=== PATIENT | female | born 1965 | race American Indian/Alaskan Native ===

== ENCOUNTER 2018-05-10 20:53 | Emergency (ER) | payer BC, MEDICAID, OTHER ==
[2018-05-10] MEDS ORDERED: Albuterol 6.7 GM Inhaler INH ONE (20:54)
[2018-05-10] MEDS ORDERED: Benzonatate 100 MG Cap PO ONE (20:54)
[2018-05-10] MEDS ORDERED: Albuterol 0.083% 2.5 MG/3 ML Neb Soln NEB ONE (23:16)
[2018-05-10] MEDS ORDERED: Sodium Chloride 0.9% 1,000 ML IV SCH (23:45)
[2018-05-10] MEDS ORDERED: Morphine 2 MG/ML Syringe IVPUSH ONE (23:48)
[2018-05-11 00:12] LABS: ANION GAP 17.8; CHLORIDE,CL 103 mmol/L (101-111); SODIUM,NA 136 mmol/L (135-145)
[2018-05-11] MEDS ORDERED: Oseltamivir 75 MG Cap PO ONE (00:35)
--- NOTE | 2018-05-11 00:47 | EDM.PDOC ---
ED HPI GENERAL MEDICAL PROBLEM - General Chief Complaint: Respiratory Problem Stated Complaint: HARD TIME BREATHING Time Seen by Provider: 05/10/18 23:20 Source of Information: Reports: Patient - History of Present Illness INITIAL COMMENTS - FREE TEXT/NARRATIVE: C/O "flu" grand daughter diagnosed Monday. Non productive cough, body aches, fever, sore throat starting yesterday. Decreased appetite, tolerating few liquids. Notes difficulty lying flat as triggers increased cough and increased pain to back. Upper Back Pain Score (Numeric/FACES): 8 - Related Data Allergies Allergy/AdvReac Type Severity Reaction Status Date / Time No Known Allergies Allergy Verified 05/10/18 23:17 Social & Family History - Tobacco Use Smoking Status *Q: Never Smoker - Caffeine Use Caffeine Use: Reports: Coffee - Recreational Drug Use Recreational Drug Use: No ED ROS GENERAL - Review of Systems Review Of Systems: ROS reveals no pertinent complaints other than HPI. ED EXAM, GENERAL - Physical Exam Exam: See Below Exam Limited By: No Limitations General Appearance: Alert, Moderate Distress Eye Exam: Bilateral Eye: EOMI, PERRL Ears: Normal External Exam Ear Exam: Bilateral Ear: TM Dull Nose: Normal Inspection Throat/Mouth: No Airway Compromise, Inflammation. No: Normal Voice (hoarse) Head: Atraumatic, Normocephalic Neck: Normal Inspection, Full Range of Motion Respiratory/Chest: Decreased Breath Sounds, Other (harsh bronchial dry cough). No: Accessory Muscle Use, Retractions Cardiovascular: Normal Peripheral Pulses, Regular Rate, Rhythm GI/Abdominal: Normal Bowel Sounds, Soft Back Exam: Paraspinal Tenderness Extremities: Normal Inspection. No: Pedal Edema Neurological: Alert, Oriented, Normal Cognition Psychiatric: Normal Affect Skin Exam: Warm, Dry, Intact, Normal Color Course - Vital Signs Last Recorded V/S: Last Vital Signs Temp 100.0 F 05/10/18 23:17 Pulse 95 05/10/18 23:17 Resp 20 05/10/18 23:17 BP 133/90 05/10/18 23:17 Pulse Ox 99 05/10/18 23:17 - Orders/Labs/Meds Labs: Laboratory Tests 05/10/18 05/10/18 05/10/18 Range/Units 23:45 23:45 23:45 WBC 5.9 (5.0-10.0) 10^3/uL RBC 4.37 (4.2-5.4) 10^6/uL Hgb 12.2 (12.0-16.0) g/dL Hct 36.9 L (37.0-47.0) % MCV 84.4 (80-100) fL MCH 27.9 (27.0-34.0) pg MCHC 33.1 (33.0-35.0) g/dL Plt Count 204 (150-450) 10^3/uL Neut % (Auto) 58.6 (42.2-75.2) % Lymph % (Auto) 32.6 (20.5-50.1) % [place] % (Auto) 8.3 H (2-8) % Eos % (Auto) 0.3 L (1.0-3.0) % Baso % (Auto) 0.2 (0.0-1.0) % Sodium 136 (135-145) mmol/L Potassium 3.8 (3.6-5.0) mmol/L Chloride 103 (101-111) mmol/L Carbon Dioxide 19.0 L (21.0-31.0) mmol/L Anion Gap 17.8 BUN 15 (7-18) mg/dL Creatinine 0.8 (0.6-1.3) mg/dL Est Cr Clr Drug Dosing 72.65 mL/min Estimated GFR (MDRD) > 60 BUN/Creatinine Ratio 18.75 Glucose 125 H (74-105) mg/dL Lactic Acid 1.7 (0.5-2.2) mmol/L Calcium 9.0 (8.4-10.2) mg/dl Total Bilirubin 1.2 H (0.2-1.0) mg/dL AST 44 H (10-42) IU/L ALT 32 (10-60) IU/L Alkaline Phosphatase 108 (42-121) IU/L Total Protein 8.3 H (6.7-8.2) g/dl Albumin 4.3 (3.2-5.5) g/dl Globulin 4.0 Albumin/Globulin Ratio 1.08 Meds: Medications Discontinued Medications Generic Name Dose Route Start Last Admin Trade Name Freq PRN Reason Stop Dose Admin Albuterol 2.5 mg 05/10/18 23:16 05/10/18 23:24 Proventil Neb Soln NEB 05/10/18 23:17 2.5 mg ONETIME ONE Administration Albuterol Confirm 05/11/18 00:57 05/11/18 02:04 Proventil Hfa Administered 05/11/18 00:58 Not Given Dose 6.7 gm INH .STK-MED ONE Albuterol 6.7 gm 05/10/18 20:54 Proventil Hfa INH 05/10/18 20:55 .STK-MED ONE Benzonatate Confirm 05/11/18 00:57 05/11/18 02:04 Tessalon Perles Administered 05/11/18 00:58 Not Given Dose 200 mg .ROUTE .STK-MED ONE Benzonatate 200 mg 05/10/18 20:54 Tessalon Perles PO 05/10/18 20:55 .STK-MED ONE Sodium Chloride 1,000 mls @ 999 mls/hr 05/10/18 23:45 05/10/18 23:58 Normal Saline IV 999 mls/hr ASDIRECTED JOE Administration Morphine Sulfate 2 mg 05/10/18 23:48 05/10/18 23:59 Morphine IVPUSH 05/10/18 23:49 2 mg ONETIME ONE Administration Oseltamivir Phosphate 75 mg 05/11/18 00:35 05/11/18 00:45 Tamiflu PO 05/11/18 00:36 75 mg ONETIME ONE Administration Departure - Departure Time of Disposition: 00:47 Disposition: Home, Self-Care 01 Condition: Good Clinical Impression: Influenza A - Discharge Information *PRESCRIPTION DRUG MONITORING PROGRAM REVIEWED*: Not Applicable Instructions: Influenza, Adult Referrals: PCP,None [Primary Care Provider] - Forms: ED Department Discharge Additional Instructions: encourage fluids alternate tylenol 650mg and ibuprofen 600mg every 4 hours as needed for fever discomfort tesselon pearless 200mg every 8 hours as needed for cough muccinex per package, to aid in thinning mucus tamiflu 75mg one twice daily for 5 days albuterol 2/5mg/ 3ml every 4 hours as needed for cough #30
[2018-05-11] MEDS ORDERED: Benzonatate 100 MG Cap ONE (00:57)
[2018-05-11] MEDS ORDERED: Albuterol 6.7 GM Inhaler INH ONE (00:57)
== END 2018-05-11 01:15 | disposition home or self-care (01) ==
LOC: DL.ED 20:53
DX: J10.1 Influenza due to other identified influenza virus with other respiratory manifestations (principal)
CPT/HCPCS: 36415; 71046; 80053; 83605; 85025; 87040; 87081; 87430; 87804; 96365; 99285; A9270; J2270; J7030; J7613-GY